=== PATIENT | male | born 1935 | race Caucasian/White ===

== ENCOUNTER 2017-04-14 06:49 | Day surgery (SDC) | payer MEDICARE, OTHER ==
[~2017-04-14 06:49] MED LIST: Lactated Ringers 1,000 ML IV SCH
[2017-04-14] MEDS ORDERED: fentaNYL 100 MCG/2 ML SDV ONE (09:01)
[2017-04-14] MEDS ORDERED: Propofol 200 MG/20 ML SDV ONE ×2 (09:02→09:22)
[2017-04-14 10:28] VITALS: BP 174/87
--- NOTE | 2017-04-14 11:52 | OR ---
DATE OF SURGERY: 04/14/2017 REFERRING PROVIDER: Olimpia Cleaning MD. PRE-OPERATIVE DIAGNOSES: History of colon polyps. Last colonoscopy was December 2011 and revealed one tubular adenoma. No known family history of colon cancer or colon polyps. POST-OPERATIVE DIAGNOSES: 1. Two small polyps, removed with cold forceps. a. A 4-mm polyp at 50 cm. b. A 2-mm polyp at 30 cm. 2. Some minimal left-sided diverticulosis. PROCEDURE: Colonoscopy with polypectomy x2 using cold forceps. SURGEON: Stiven Aguilar M.D. ANESTHESIA: Monitored anesthesia care. BOWEL PREP: Good. DESCRIPTION OF OPERATION: Matthew is a 81-year-old male. The patient was brought to the endoscopy suite after discussing risks and benefits of the procedure. Informed consent was obtained for conscious sedation and colonoscopy with or without biopsy and/or polypectomy. We also discussed possibility of missed lesions. Pre-procedure exam was unremarkable. IV, oxygen, and monitors were placed. The patient was placed in the left lateral decubitus position. Sedation was administered and a digital rectal exam was performed and was unremarkable. No palpable prostate nodules noted, nor any significant prostate enlargement. Colonoscope was passed into the rectum and slowly advanced all the way to the cecum. Cecum was viewed and photographed. The colonoscope was slowly withdrawn and the mucosa was closed observed in a direct circumferential manner. Ascending colon was unremarkable. Transverse colon was unremarkable. Descending colon did reveal a 4-mm polyp at 50 cm, removed with cold forceps. The sigmoid colon revealed 2-mm polyp at 30 cm removed with cold forceps. Retroflexion was performed. Rectal mucosa was unremarkable. Of note, the left colon did also reveal some minimal diverticulosis without any evidence of inflammation. Scope was removed. The patient tolerated the procedure well. The patient was monitored until that baseline status. Discharge instructions were reviewed and the patient was discharged in good condition. COMPLICATIONS: None. TOTAL TIME: 21 minute. ESTIMATED BLOOD LOSS: About 1 mL. RECOMMENDATIONS/FOLLOW-UP: We will await results of Path report to determine ideal followup interval. The patient can likely be done with screening colonoscopies given his age, depending on Path results, but not expecting any aggressive pathology of these 2 polyps. I will have the patient hold his aspirin for 3 days to limit any chance of bleeding. I would like to kindly thank Dr. Cleaning for this referral. DMB: 04/14/2017 09:57:18 MODL: 04/14/2017 11:33:21 /[id number]
== END 2017-04-14 10:57 | disposition home or self-care (01) ==
LOC: VM.SDS 06:49
PROVIDERS: ATTEND Family Medicine
DX: Z86.010 Personal history of colon polyps (principal); E11.9 Type 2 diabetes mellitus without complications
CPT/HCPCS: 00810; 45380; 82962; 88305; J2704; J3010; J7120

== ENCOUNTER 2021-04-06 08:39 | Emergency (ER) | payer MEDICARE, OTHER ==
[2021-04-06] MEDS ORDERED: Aspirin 81 MG Tab.Chew PO ONE (09:02)
--- NOTE | 2021-04-06 09:35 | EDM.PDOC ---
ED HPI GENERAL MEDICAL PROBLEM - General Stated Complaint: ER Time Seen by Provider: 04/06/21 08:40 Source of Information: Reports: Patient, RN History Limitations: Reports: No Limitations - History of Present Illness INITIAL COMMENTS - FREE TEXT/NARRATIVE: Pt. presents to ER with complaints of exertional chest pain and EKG changes with activity at cardiac rehab. Pt. has a history of severe CAD and angina. Pt. underwent a heart cath 03/02/2021 and has 70% stenosis left main, 90% mid and 100% distal LAD, 70% mid and 100% distal RCA, severe, severe proximal large D2 and 100% proximal OM 2. EF at that time was 40%. Pt. is not a candidate for stenting or operative management at [place] at this time. He is scheduled to be evaluated at [facility] in [place]. Pt. was participating in cardiac rehab today and experienced chest pain. Nursing noticed that the patient HR decreased to approx. 40. She states that he had some peaked t waves but there was no obvious ST abnormality. The pain resolved after stopping physical activity. He did not take any nitro. Pt. frequently has angina for which he takes SL nitro. Pt. was recently started on coreg and isosorbide. He is also on plavix, lipitor and lisinopril. He previously had been on amlodipine and metoprolol but this has been discontinued. On initial exam in ER, pt. reported that he was feeling much better, no experiencing any chest pain. Denies any jaw, arm, neck, or back pain. He denies any lightheadedness, palpitations, racing heart, diaphoresis at this time. Onset: Today Onset Date: 04/06/21 Location: Reports: Chest Quality: Reports: Ache, Dull - Related Data Allergies Allergy/AdvReac Type Severity Reaction Status Date / Time No Known Allergies Allergy Verified 04/14/17 07:44 Home Meds: Home Meds Ascorbate Calcium [Calcium Ascorbate] 500 mg PO DAILY 04/08/17 [History] Aspirin 325 mg PO DAILY 04/08/17 [History] Calcium Citrate/Vitamin D3 [Calcium Citrate + D] 1 tab PO BIDMEALS 04/08/17 [History] Celecoxib 200 mg PO DAILY 04/08/17 [History] Cholecalciferol (Vitamin D3) [Vitamin D3] 2,000 unit PO DAILY 04/08/17 [History] Cinnamon Bark [Cinnamon] 500 mg PO DAILY 04/08/17 [History] Flaxseed Oil [Flaxseed] 1,000 mg PO DAILY 04/08/17 [History] Garlic 1,000 mg PO DAILY 04/08/17 [History] Glucosamine/D3/Boswellia Leonarda [Glucosamine Daily Complex Tab] 1 each PO DAILY 04/08/17 [History] Metoprolol Tartrate [Lopressor] 50 mg PO BID 04/08/17 [History] Niacin 500 mg PO BEDTIME 04/08/17 [History] Nitroglycerin [Nitrostat] 0.4 mg SL Q5M PRN 04/08/17 [History] [place]-3/DHA/Epa/Fish Oil [[place]-3 Fish Oil 1,000 MG Sfgl] 1,000 mg PO BID 04/08/17 [History] Pravastatin Sodium [Pravastatin (Pravachol)] 40 mg PO DAILY 04/08/17 [History] Ubidecarenone [Co Q-10] 300 mg PO DAILY 04/08/17 [History] Vit A/C/E AC/Znox/Cupric Oxide [Eye Vitamin-Minerals Tablet] 1 each PO DAILY 04/08/17 [History] Yeast,Dried (S. Cerevisiae) [Weber's Yeast] 500 mg PO DAILY 04/08/17 [History] amLODIPine [Norvasc] 5 mg PO DAILY 04/08/17 [History] Past Medical History HEENT History: Reports: Cataract Other HEENT History: RETINAL FUNCTION STUDIES ABNORMAL Cardiovascular History: Reports: Angina, High Cholesterol, Hypertension Other Cardiovascular History: ABNORMAL EKG Gastrointestinal History: Reports: Colon Polyp Other Genitourinary History: PROTEINUREA Other Musculoskeletal History: RIGHT ELBOW PAIN. RIGHT KNEE PAIN. CONTRACTURE OF PALMAR FASCIA. UMBILICAL HERNIA Neurological History: Reports: Neuropathy, Diabetic Other Psychiatric History: OBESITY Endocrine/Metabolic History: Reports: Diabetes, Type II Other Dermatologic History: SKIN LESION FACE - Past Surgical History HEENT Surgical History: Reports: Cataract Surgery, Eye Surgery Other HEENT Surgeries/Procedures: STRABISMIS SURGERY RIGHT EYE GI Surgical History: Reports: Colonoscopy Other Male Surgeries/Procedures: HERNIA REPAIR ED ROS GENERAL - Review of Systems Review Of Systems: See Below Constitutional: Reports: No Symptoms HEENT: Reports: No Symptoms Respiratory: Reports: No Symptoms Cardiovascular: Reports: Chest Pain Endocrine: Reports: No Symptoms GI/Abdominal: Reports: No Symptoms : Reports: No Symptoms Musculoskeletal: Reports: No Symptoms Skin: Reports: No Symptoms Neurological: Reports: No Symptoms Psychiatric: Reports: No Symptoms Hematologic/Lymphatic: Reports: No Symptoms Immunologic: Reports: No Symptoms ED EXAM, GENERAL - Physical Exam Exam: See Below Exam Limited By: No Limitations General Appearance: Alert, WD/WN, No Apparent Distress Neck: Normal Inspection, Supple, Non-Tender, Full Range of Motion Respiratory/Chest: No Respiratory Distress, Lungs Clear, Normal Breath Sounds, No Accessory Muscle Use, Chest Non-Tender Cardiovascular: Regular Rate, Rhythm, No Murmur GI/Abdominal: Soft, Non-Tender, No Organomegaly, No Distention, No Mass (Male) Exam: Deferred Rectal (Males) Exam: Deferred Back Exam: Normal Inspection, Full Range of Motion Extremities: Normal Inspection, Normal Range of Motion, Non-Tender, No Pedal Edema, Normal Capillary Refill Neurological: Alert, Oriented, CN II-XII Intact, Normal Cognition, Normal Refl exes, No Motor/Sensory Deficits Psychiatric: Normal Affect, Normal Mood Skin Exam: Warm, Dry, Intact, Normal Color, No Rash #1 Interpretation Rhythm: NSR [place]: Normal P-Wave: Present QRS: Normal ST-T: Normal QT: Normal Course - Orders/Labs/Meds Labs: Laboratory Tests 04/06/21 04/06/21 04/06/21 Range/Units 08:55 08:55 08:55 WBC 6.7 (4.0-10.0) x10^3/uL RBC 4.58 (4.5-6.0) x10^6/uL Hgb 14.2 (14.0-18.0) g/dL Hct 41.6 (40.0-52.0) % MCV 90.8 (78.0-93.0) fL MCH 31.0 (26.0-32.0) pg MCHC 34.1 (32.0-36.0) g/dL RDW Coeff of Lina 13.0 (10.0-15.0) % Plt Count 136 (130-400) x10^3/uL Neut % (Auto) 64.4 (50.0-80.0) % Lymph % (Auto) 23.9 L (25.0-50.0) % Cat[place] % (Auto) 8.8 (2.0-11.0) % Eos % (Auto) 2.5 (0.0-4.0) % Baso % (Auto) 0.4 (0.2-1.2) % PT 11.5 (9.9-12.5) SEC INR 1.0 L (2.0-3.5) APTT 21.7 L (25.6-32.8) SEC Sodium (136-145) mmol/L Potassium (3.5-5.1) mmol/L Chloride (98-107) mmol/L Carbon Dioxide (21-32) mmol/L Anion Gap (5-15) mmol/L BUN (7-18) mg/dL Creatinine (0.70-1.30) mg/dL Est Cr Clr Drug Dosing Estimated GFR (MDRD) Glucose (70-99) mg/dL Calcium (8.5-10.1) mg/dL Corrected Calcium (8.5-10.1) mg/dL Total Bilirubin (0.2-1.0) mg/dL AST (15-37) U/L ALT (16-63) U/L Alkaline Phosphatase (46-116) U/L Troponin I High Sens (<=76) ng/L Total Protein (6.4-8.2) g/dL Albumin (3.4-5.0) g/dL Globulin Albumin/Globulin Ratio 04/06/ Range/Units 08:55 WBC (4.0-10.0) x10^3/uL RBC (4.5-6.0) x10^6/uL Hgb (14.0-18.0) g/dL Hct (40.0-52.0) % MCV (78.0-93.0) fL MCH (26.0-32.0) pg MCHC (32.0-36.0) g/dL RDW Coeff of Lina (10.0-15.0) % Plt Count (130-400) x10^3/uL Neut % (Auto) (50.0-80.0) % Lymph % (Auto) (25.0-50.0) % Catron % (Auto) (2.0-11.0) % Eos % (Auto) (0.0-4.0) % Baso % (Auto) (0.2-1.2) % PT (9.9-12.5) SEC INR (2.0-3.5) APTT (25.6-32.8) SEC Sodium 143 (136-145) mmol/L Potassium 4.2 (3.5-5.1) mmol/L Chloride 105 (98-107) mmol/L Carbon Dioxide 26 (21-32) mmol/L Anion Gap 16.2 H (5-15) mmol/L BUN 22 H (7-18) mg/dL Creatinine 1.3 (0.70-1.30) mg/dL Est Cr Clr Drug Dosing TNP Estimated GFR (MDRD) 53 Glucose 160 H (70-99) mg/dL Calcium 8.8 (8.5-10.1) mg/dL Corrected Calcium 9.2 (8.5-10.1) mg/dL Total Bilirubin 0.9 (0.2-1.0) mg/dL AST 15 (15-37) U/L ALT 17 (16-63) U/L Alkaline Phosphatase 52 (46-116) U/L Troponin I High Sens 68 (<=76) ng/L Total Protein 6.9 (6.4-8.2) g/dL Albumin 3.5 (3.4-5.0) g/dL Globulin 3.4 Albumin/Globulin Ratio 1.03 Meds: Medications Discontinued Medications Generic Name Dose Route Start Last Admin Trade Name Freq PRN Reason Stop Dose Admin Aspirin 324 mg 04/06/21 09:02 Aspirin 81 Mg Tab.Chew PO 04/06/21 09:03 ONETIME ONE Departure - Departure Time of Disposition: 10:09 Disposition: Home, Self-Care 01 Clinical Impression: CAD (coronary artery disease) - Discharge Information Instructions: Angina, [id number] Additional Instructions: Home to rest. Follow-up with your cardiology team, especially if you are having discomfort at rest. Continue with current medications. - Problem List Review Problem List Initiated/Reviewed/Updated: Yes - Assessment/Plan Plan: Advised patient that we should perform serial troponin testing, but he refuses, stating that he feels better and wishes to go home. He was advised to return to ER if he has recurrent discomfort, shortness of breath, lightheadedness, or palpitations.
[2021-04-06 09:40] LABS: ANION GAP 16.2 mmol/L (5-15); CHLORIDE,CL 105 mmol/L (98-107); SODIUM,NA 143 mmol/L (136-145)
== END 2021-04-06 10:10 | disposition home or self-care (01) ==
LOC: VM.ED 08:39
DX: I25.10 Atherosclerotic heart disease of native coronary artery without angina pectoris (principal); E78.00 Pure hypercholesterolemia, unspecified; I10 Essential (primary) hypertension; E11.40 Type 2 diabetes mellitus with diabetic neuropathy, unspecified; E66.9 Obesity, unspecified; Z79.82 Long term (current) use of aspirin; Z79.899 Other long term (current) drug therapy
CPT/HCPCS: 80053; 84484; 85025; 85610; 85730; 93005; 93010; 99284; 99285-25; A9270-GY

== ENCOUNTER 2021-04-13 08:21 | Emergency (ER) | payer MEDICARE, OTHER ==
--- NOTE | 2021-04-13 09:09 | EDM.PDOC ---
ED HPI GENERAL MEDICAL PROBLEM - General Chief Complaint: Cardiovascular Problem Stated Complaint: CHEST PAIN Time Seen by Provider: 04/13/21 08:25 Source of Information: Reports: Patient History Limitations: Reports: No Limitations - History of Present Illness INITIAL COMMENTS - FREE TEXT/NARRATIVE: Patient states last night about 230 started having some midsternal pain about a 3 out of 10 patient states is more of a pressure than pain with radiation to the left arm he states this is not his unusual type of chest pain he has it quite often takes nitro for it but states last night he had to take 3 nitros over. About 3 or 4 hours to get it to resolve. He states he also had some really bad indigestion from eating a hamburger steak and drinking a cold beer last night. He does have significant coronary artery disease and is currently waiting to be seen in [place] for a specialist to have a stenting procedure done that cannot be done at [place] with the pest control pilot. Duration: Hour(s): Location: Reports: Chest Quality: Reports: Pressure Severity: Mild Improves with: Reports: Medication Worsens with: Reports: None Associated Symptoms: Reports: No Other Symptoms, Chest Pain. Denies: Confusion, Cough, Diaphoresis, Fever/Chills, Headaches, Malaise, Nausea/Vomiting, Seizure, Shortness of Breath, Syncope, Weakness - Related Data Allergies Allergy/AdvReac Type Severity Reaction Status Date / Time No Known Allergies Allergy Verified 04/14/17 07:44 Home Meds: Home Meds Ascorbate Calcium [Calcium Ascorbate] 500 mg PO DAILY 04/08/17 [History] Aspirin 325 mg PO DAILY 04/08/17 [History] Calcium Citrate/Vitamin D3 [Calcium Citrate + D] 1 tab PO BIDMEALS 04/08/17 [History] Celecoxib 200 mg PO DAILY 04/08/17 [History] Cholecalciferol (Vitamin D3) [Vitamin D3] 2,000 unit PO DAILY 04/08/17 [History] Cinnamon Bark [Cinnamon] 500 mg PO DAILY 04/08/17 [History] Flaxseed Oil [Flaxseed] 1,000 mg PO DAILY 04/08/17 [History] Garlic 1,000 mg PO DAILY 04/08/17 [History] Glucosamine/D3/Boswellia Leonarda [Glucosamine Daily Complex Tab] 1 each PO DAILY 04/08/17 [History] Metoprolol Tartrate [Lopressor] 50 mg PO BID 04/08/17 [History] Niacin 500 mg PO BEDTIME 04/08/17 [History] Nitroglycerin [Nitrostat] 0.4 mg SL Q5M PRN 04/08/17 [History] [place]-3/DHA/Epa/Fish Oil [[place]-3 Fish Oil 1,000 MG Sfgl] 1,000 mg PO BID 04/08/17 [History] Pravastatin Sodium [Pravastatin (Pravachol)] 40 mg PO DAILY 04/08/17 [History] Ubidecarenone [Co Q-10] 300 mg PO DAILY 04/08/17 [History] Vit A/C/E AC/Znox/Cupric Oxide [Eye Vitamin-Minerals Tablet] 1 each PO DAILY 04/08/17 [History] Yeast,Dried (S. Cerevisiae) [Weber's Yeast] 500 mg PO DAILY 04/08/17 [History] amLODIPine [Norvasc] 5 mg PO DAILY 04/08/17 [History] Past Medical History HEENT History: Reports: Cataract Other HEENT History: RETINAL FUNCTION STUDIES ABNORMAL Cardiovascular History: Reports: Angina, High Cholesterol, Hypertension Other Cardiovascular History: ABNORMAL EKG Gastrointestinal History: Reports: Colon Polyp Other Genitourinary History: PROTEINUREA Other Musculoskeletal History: RIGHT ELBOW PAIN. RIGHT KNEE PAIN. CONTRACTURE OF PALMAR FASCIA. UMBILICAL HERNIA Neurological History: Reports: Neuropathy, Diabetic Other Psychiatric History: OBESITY Endocrine/Metabolic History: Reports: Diabetes, Type II Other Dermatologic History: SKIN LESION FACE - Past Surgical History HEENT Surgical History: Reports: Cataract Surgery, Eye Surgery Other HEENT Surgeries/Procedures: STRABISMIS SURGERY RIGHT EYE GI Surgical History: Reports: Colonoscopy Other Male Surgeries/Procedures: HERNIA REPAIR ED ROS GENERAL - Review of Systems Review Of Systems: See Below Constitutional: Reports: No Symptoms HEENT: Reports: No Symptoms Respiratory: Reports: No Symptoms Cardiovascular: Reports: Chest Pain, Other (Patient has not taken blood pressure medication yet this morning prior to arrival to the clinic in ER). Denies: Blood Pressure Problem, Claudication, Dyspnea on Exertion, Edema, Lightheadedness, Orthopnea, Palpitations, PND, Syncope Endocrine: Reports: No Symptoms GI/Abdominal: Reports: No Symptoms : Reports: No Symptoms Musculoskeletal: Reports: No Symptoms Skin: Reports: No Symptoms Neurological: Reports: No Symptoms Psychiatric: Reports: No Symptoms Hematologic/Lymphatic: Reports: No Symptoms Immunologic: Reports: No Symptoms ED EXAM, GENERAL - Physical Exam Exam: See Below Exam Limited By: No Limitations General Appearance: Alert, WD/WN, No Apparent Distress Eye Exam: Bilateral Eye: Normal Inspection, PERRL Ears: Normal External Exam Throat/Mouth: Normal Inspection, Normal Lips, Normal Teeth, Normal Gums, Normal Oropharynx, Normal Voice, No Airway Compromise Neck: Normal Inspection, Supple, Non-Tender, Full Range of Motion Respiratory/Chest: No Respiratory Distress, Lungs Clear, Normal Breath Sounds, No Accessory Muscle Use, Chest Non-Tender Cardiovascular: Normal Peripheral Pulses, Regular Rate, Rhythm, No Edema, No Gallop, No JVD, No Murmur, No Rub GI/Abdominal: Normal Bowel Sounds, Soft, Non-Tender, No Organomegaly, No Distention, No Abnormal Bruit, No Mass Back Exam: Normal Inspection, Full Range of Motion Extremities: Normal Inspection, Normal Range of Motion, Non-Tender, No Pedal Edema, Normal Capillary Refill Neurological: Alert, Oriented, CN II-XII Intact, Normal Cognition, Normal Gait, Normal Reflexes, No Motor/Sensory Deficits Psychiatric: Normal Affect, Normal Mood Skin Exam: Warm, Dry, Intact, Normal Color, No Rash #1 Interpretation EKG Date: 04/13/21 Time: 08:30 Rhythm: NSR [place]: Normal P-Wave: Present QRS: Normal ST-T: Normal QT: Normal Course - Vital Signs Text/Narrative:: cbc bmp trop cxr 1st trop 75 2nd 124 called [place] for transfer [address] Sheriff [phone] nothing that can be done As far as with pest control pilot there is no possibility of CABG per prior notes he is pending a consult with another pest control pilot in [place]. He recommends at this time either transferring the patient for inpatient treatment with heparin check serial troponins over the night or keeping the patient here and doing the same Spoke with the patient at this time he wishes to remain here for treatment called Dr. Scarlett Pelayo for admission 1145 we will start the patient on heparin drip at this time after recommendation by microeconomics professor Per DR pelayo transfer to [place] Spoke with Dr Huerta will accept pt 1200 - Orders/Labs/Meds Orders: Active Orders 24 hr Category Date Time Status Heart Healthy Diet [DIET] Diet 04/13/21 Lunch Ordered Labs: Laboratory Tests 04/13/21 04/13/21 04/13/21 Range/Units 08:38 08:38 08:38 WBC 7.3 (4.0-10.0) x10^3/uL RBC 4.84 (4.5-6.0) x10^6/uL Hgb 15.0 (14.0-18.0) g/dL Hct 44.3 (40.0-52.0) % MCV 91.5 (78.0-93.0) fL MCH 31.0 (26.0-32.0) pg MCHC 33.9 (32.0-36.0) g/dL RDW Coeff of Lina 13.6 (10.0-15.0) % Plt Count 140 (130-400) x10^3/uL Neut % (Auto) 64.3 (50.0-80.0) % Lymph % (Auto) 24.0 L (25.0-50.0) % [place] % (Auto) 8.7 (2.0-11.0) % Eos % (Auto) 2.7 (0.0-4.0) % Baso % (Auto) 0.3 (0.2-1.2) % PT 11.6 (9.9-12.5) SEC INR 1.0 L (2.0-3.5) APTT (25.6-32.8) SEC Sodium 141 (136-145) mmol/L Potassium 4.3 (3.5-5.1) mmol/L Chloride 105 (98-107) mmol/L Carbon Dioxide 27 (21-32) mmol/L Anion Gap 13.3 (5-15) mmol/L BUN 21 H (7-18) mg/dL Creatinine 1.4 H (0.70-1.30) mg/dL Est Cr Clr Drug Dosing TNP Estimated GFR (MDRD) 48 Glucose 146 H (70-99) mg/dL Calcium 9.3 (8.5-10.1) mg/dL Troponin I High Sens 75 (<=76) ng/L 04/13/21 04/13/21 Range/Units 08:38 10:35 WBC (4.0-10.0) x10^3/uL RBC (4.5-6.0) x10^6/uL Hgb (14.0-18.0) g/dL Hct (40.0-52.0) % MCV (78.0-93.0) fL MCH (26.0-32.0) pg MCHC (32.0-36.0) g/dL RDW Coeff of Lina (10.0-15.0) % Plt Count (130-400) x10^3/uL Neut % (Auto) (50.0-80.0) % Lymph % (Auto) (25.0-50.0) % [place] % (Auto) (2.0-11.0) % Eos % (Auto) (0.0-4.0) % Baso % (Auto) (0.2-1.2) % PT (9.9-12.5) SEC INR (2.0-3.5) APTT 22.5 L (25.6-32.8) SEC Sodium (136-145) mmol/L Potassium (3.5-5.1) mmol/L Chloride (98-107) mmol/L Carbon Dioxide (21-32) mmol/L Anion Gap (5-15) mmol/L BUN (7-18) mg/dL Creatinine (0.70-1.30) mg/dL Est Cr Clr Drug Dosing Estimated GFR (MDRD) Glucose (70-99) mg/dL Calcium (8.5-10.1) mg/dL Troponin I High Sens 124 H* (<=76) ng/L Departure - Departure Time of Disposition: 11:30 Disposition: DC/Tfer to Acute Hospital 02 Reason for Transfer *Q: Other (no indicated) Condition: Good Clinical Impression: NSTEMI (non-ST elevated myocardial infarction) Referrals: Olimpia Cleaning MD [Primary Care Provider] - Forms: ED Department Discharge, Interfacility Transfer EMTALA - Problem List & Annotations (1) NSTEMI (non-ST elevated myocardial infarction) SNOMED Code(s): 32063406 Code(s): I21.4 - NON-ST ELEVATION (NSTEMI) MYOCARDIAL INFARCTION Status: Acute Current Visit: Yes (2) CAD (coronary artery disease) SNOMED Code(s): 93436552 Code(s): I25.10 - ATHSCL HEART DISEASE OF [place] CORONARY ARTERY W/O ANG PCTRS Status: Acute Current Visit: No
[2021-04-13 09:29] LABS: CHLORIDE,CL 105 mmol/L (98-107); SODIUM,NA 141 mmol/L (136-145)
[2021-04-13 09:30] LABS: ANION GAP 13.3 mmol/L (5-15)
--- NOTE | 2021-04-13 09:54 | CR ---
[id number] RAD/RAD Chest PA or AP 1V EXAM: SINGLE VIEW CHEST. INDICATION: CHEST PAIN COMPARISON: CORRELATION IS MADE WITH OCTOBER 18, 2008 FINDINGS: There is mild to moderate edema The cardiac silhouette is enlarged The aorta is slightly tortuous IMPRESSION: MILD TO MODERATE CHF Sujit Saucedo MD 04/13/21 [id number] Thank you for allowing us to participate in the care of your patient.
[2021-04-13] MEDS ORDERED: Heparin Sodium 5,000 Units/ML Vial IV ONE (12:40)
[2021-04-13] MEDS ORDERED: Heparin Sodium/0.45% NaCl 25,000 UNITS/500 ML BAG IV SCH (12:45)
[2021-04-13] MEDS ORDERED: Heparin Sodium 5,000 Units/ML Vial IVPUSH ONE (12:46)
[2021-04-14 12:49] VITALS: BP 140/89; PULSE 75
== END 2021-04-13 15:14 | disposition short-term general hospital (02) ==
LOC: SUPCPDRO 08:21 → VM.ED 08:21
DX: I21.4 Non-ST elevation (NSTEMI) myocardial infarction (principal); E78.00 Pure hypercholesterolemia, unspecified; I10 Essential (primary) hypertension; E11.40 Type 2 diabetes mellitus with diabetic neuropathy, unspecified; E66.9 Obesity, unspecified; Z79.82 Long term (current) use of aspirin; Z79.899 Other long term (current) drug therapy; Z68.29 Body mass index [BMI] 29.0-29.9, adult
CPT/HCPCS: 36415; 71045; 80048; 84484; 85025; 85610; 85730; 96365; 96366; 99285; J1644; 93010; 99284

== ENCOUNTER 2021-04-26 05:46 | Observation (INO) | payer MEDICARE, OTHER ==
[2021-04-26] MEDS ORDERED: Nitroglycerin 2% Oint 1 GM UD Packet TOP ONE (06:03)
[2021-04-26] MEDS ORDERED: Furosemide 40 MG/4 ML VIAL IV ONE (06:11)
--- NOTE | 2021-04-26 06:23 | EDM.PDOC ---
ED HPI GENERAL MEDICAL PROBLEM - General Chief Complaint: Chest Pain Stated Complaint: Shortness of breath/chest pain Time Seen by Provider: 04/26/21 06:00 Source of Information: Reports: Patient, EMS, Old Records History Limitations: Reports: No Limitations - History of Present Illness INITIAL COMMENTS - FREE TEXT/NARRATIVE: Patient presents via ems for chest pain , shortness of breath. He has a long standing heart history to include a recent cath. 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 He states that he was started on a water pill in March but has not noted a difference in urination. He started to have increased shortness of breath and chest discomfort yesterday. Over the night he gave himself 3 separate doses of nitroglycerin with some relief of the left chest pressure that does intensify. This morning he awoke with significant shortness of breath. He was sweaty. EMS was called. SAts were 83% when they arrived. O2 was applied via NC and he improved to 98%. Duoneb was given as he was struggling to breathe, had retractions. 125 mg of solu medrol was given IVP for respiratory difficultly. He arrives with some chest discomfort, diaphoresis and shortness of breath. He states his weight is up about 2 pounds in the last week. lasix gave 40 mg lasix enroute. no results yet. Some diffuse ST elevations on their 12 lead. Onset Date: 04/25/21 Duration: Hour(s):, Heavy, Intermittent, Recurring Location: Reports: Chest Quality: Reports: Dull Severity: Moderate Improves with: Reports: None Worsens with: Reports: None Associated Symptoms: Reports: Shortness of Breath Treatments CAR INSPECTOR: Reports: Breathing Treatments, Other (see below) (lasix) Left chest Pain Score (Numeric/FACES): 5 - Related Data Allergies Allergy/AdvReac Type Severity Reaction Status Date / Time No Known Allergies Allergy Verified 04/26/21 08:09 Home Meds: Home Meds Ascorbate Calcium [Calcium Ascorbate] 500 mg PO DAILY 04/08/17 [History] Aspirin 325 mg PO DAILY 04/08/17 [History] Calcium Citrate/Vitamin D3 [Calcium Citrate + D] 1 tab PO BIDMEALS 04/08/17 [History] Celecoxib 200 mg PO DAILY 04/08/17 [History] Cholecalciferol (Vitamin D3) [Vitamin D3] 2,000 unit PO DAILY 04/08/17 [History] Cinnamon Bark [Cinnamon] 500 mg PO DAILY 04/08/17 [History] Flaxseed Oil [Flaxseed] 1,000 mg PO DAILY 04/08/17 [History] Garlic 1,000 mg PO DAILY 04/08/17 [History] Glucosamine/D3/Boswellia Leonarda [Glucosamine Daily Complex Tab] 1 each PO DAILY 04/08/17 [History] Metoprolol Tartrate [Lopressor] 50 mg PO BID 04/08/17 [History] Niacin 500 mg PO BEDTIME 04/08/17 [History] Nitroglycerin [Nitrostat] 0.4 mg SL Q5M PRN 04/08/17 [History] [place]-3/DHA/Epa/Fish Oil [[place]-3 Fish Oil 1,000 MG Sfgl] 1,000 mg PO DAILY 04/08/17 [History] Pravastatin Sodium [Pravastatin (Pravachol)] 40 mg PO DAILY 04/08/17 [History] Ubidecarenone [Co Q-10] 300 mg PO DAILY 04/08/17 [History] Vit A/C/E AC/Znox/Cupric Oxide [Eye Vitamin-Minerals Tablet] 1 each PO DAILY 04/08/17 [History] Yeast,Dried (S. Cerevisiae) [Weber's Yeast] 500 mg PO DAILY 04/08/17 [History] amLODIPine [Norvasc] 5 mg PO DAILY 04/08/17 [History] Aspirin 81 mg PO DAILY 04/26/21 [History] Clopidogrel Bisulfate [Plavix] 75 mg PO DAILY 04/26/21 [History] Furosemide [Lasix] 20 mg PO DAILY 04/26/21 [History] Isosorbide Mononitrate [Imdur] 90 mg PO WITHLUNCH 04/26/21 [History] atorvaSTATin Calcium [Lipitor] 40 mg PO BEDTIME 04/26/21 [History] carvediloL [Coreg] 12.5 mg PO BID 04/26/21 [History] lisinopriL [Lisinopril] 10 mg PO BEDTIME 04/26/21 [History] metFORMIN [Glucophage] 500 mg PO BIDMEALS 04/26/21 [History] Past Medical History HEENT History: Reports: Cataract Other HEENT History: RETINAL FUNCTION STUDIES ABNORMAL Cardiovascular History: Reports: Angina, High Cholesterol, Hypertension Other Cardiovascular History: ABNORMAL EKG Gastrointestinal History: Reports: Colon Polyp Other Genitourinary History: PROTEINUREA Other Musculoskeletal History: RIGHT ELBOW PAIN. RIGHT KNEE PAIN. CONTRACTURE OF PALMAR FASCIA. UMBILICAL HERNIA Neurological History: Reports: Neuropathy, Diabetic Other Psychiatric History: OBESITY Endocrine/Metabolic History: Reports: Diabetes, Type II Other Dermatologic History: SKIN LESION FACE - Past Surgical History HEENT Surgical History: Reports: Cataract Surgery, Eye Surgery Other HEENT Surgeries/Procedures: STRABISMIS SURGERY RIGHT EYE GI Surgical History: Reports: Colonoscopy Other Male Surgeries/Procedures: HERNIA REPAIR ED ROS GENERAL - Review of Systems Review Of Systems: See Below Constitutional: Reports: Fatigue, Diaphoresis HEENT: Reports: No Symptoms. Denies: Sinus Problem, Throat Swelling Respiratory: Reports: Shortness of Breath, Wheezing, Cough. Denies: Sputum, Hemoptysis Cardiovascular: Reports: Chest Pain, Dyspnea on Exertion Endocrine: Reports: Fatigue GI/Abdominal: Reports: No Symptoms. Denies: Abdominal Pain, Constipation, Diarrhea, Nausea, Vomiting : Reports: No Symptoms. Denies: Frequency, Urgency Musculoskeletal: Reports: No Symptoms. Denies: Leg Pain, Foot Pain, Muscle Stiffness Skin: Reports: No Symptoms Neurological: Reports: No Symptoms Psychiatric: Reports: No Symptoms ED EXAM, GENERAL - Physical Exam Exam: See Below Exam Limited By: No Limitations General Appearance: Alert, Moderate Distress Eye Exam: Bilateral Eye: EOMI, Normal Inspection, PERRL Ears: Normal External Exam Nose: Normal Inspection, Normal Mucosa Throat/Mouth: Normal Inspection, Normal Lips, Normal Teeth, Normal Oropharynx, Normal Voice Head: Atraumatic, Normocephalic Neck: Supple Respiratory/Chest: Respiratory Distress, Decreased Breath Sounds, Crackles, Wheezing, Accessory Muscle Use, Retractions, Prolonged Expiration Cardiovascular: Regular Rate, Rhythm, JVD, Tachycardia (100) GI/Abdominal: Normal Bowel Sounds, Soft, Non-Tender, No Abnormal Bruit, No Mass. No: Rigid, Rebound Extremities: Pedal Edema (1+ to mid larios bilaterally) Neurological: Alert, Oriented, CN II-XII Intact, Normal Cognition, Normal Gait Psychiatric: Normal Affect Skin Exam: Warm, Diaphoretic #1 Interpretation EKG Date: 04/26/21 Time: 05:56 Rhythm: NSR Rate (Beats/Min): 100 P-Wave: Present QRS: Normal ST-T: Elevated (unchanged from previous) QT: Normal Comparison: No Change Course - Vital Signs Last Recorded V/S: Last Vital Signs Temp 36.7 C 04/26/21 09:30 Pulse 87 04/26/21 09:30 Resp 20 04/26/21 09:30 BP 146/86 H 04/26/21 09:30 Pulse Ox 99 04/26/21 09:30 - Orders/Labs/Meds Orders: Active Orders 24 hr Category Date Time Status Cardiac Monitoring [RC] . DIRECTED Care 04/26/21 06:04 Active EKG 12 Lead [EKG Documentation Completion] [RC] STAT Care 04/26/21 05:50 Active Oxygen Therapy [RC] ASDIRECTED Care 04/26/21 06:08 Active Resuscitation Status Routine Resus Stat 04/26/21 06:01 Ordered Labs: Laboratory Tests 04/26/21 04/26/21 04/26/21 Range/Units 06:25 06:25 06:25 WBC 11.3 H (4.0-10.0) x10^3/uL RBC 4.85 (4.5-6.0) x10^6/uL Hgb 15.1 (14.0-18.0) g/dL Hct 44.5 (40.0-52.0) % MCV 91.8 (78.0-93.0) fL MCH 31.1 (26.0-32.0) pg MCHC 33.9 (32.0-36.0) g/dL RDW Coeff of Lina 13.9 (10.0-15.0) % Plt Count 145 (130-400) x10^3/uL Neut % (Auto) 65.7 (50.0-80.0) % Lymph % (Auto) 25.3 (25.0-50.0) % Island % (Auto) 6.9 (2.0-11.0) % Eos % (Auto) 1.7 (0.0-4.0) % Baso % (Auto) 0.4 (0.2-1.2) % D-Dimer, Quantitative 2.23 H (<=0.58) mg/LFEU Sodium 142 (136-145) mmol/L Potassium 4.0 (3.5-5.1) mmol/L Chloride 105 (98-107) mmol/L Carbon Dioxide 24 (21-32) mmol/L Anion Gap 17.0 H (5-15) mmol/L BUN 17 (7-18) mg/dL Creatinine 1.4 H (0.70-1.30) mg/dL Est Cr Clr Drug Dosing TNP Estimated GFR (MDRD) 48 Glucose 215 H (70-99) mg/dL Calcium 9.0 (8.5-10.1) mg/dL Corrected Calcium 9.5 (8.5-10.1) mg/dL Magnesium 1.9 (1.8-2.4) mg/dL Total Bilirubin 0.7 (0.2-1.0) mg/dL AST 19 (15-37) U/L ALT 19 (16-63) U/L Alkaline Phosphatase 60 (46-116) U/L Troponin I High Sens 80 H* (<=76) ng/L NT-Pro-B Natriuret Pep 1858 H (<=450) pg/mL Total Protein 7.3 (6.4-8.2) g/dL Albumin 3.4 (3.4-5.0) g/dL Globulin 3.9 Albumin/Globulin Ratio 0.87 Urine Color (YELLOW) Urine Appearance (CLEAR) Urine pH (5.0-8.0) Ur Specific [place] Urine Protein (NEGATIVE) mg/dL Urine Glucose (UA) (NEGATIVE) mg/dL Urine Ketones (NEGATIVE) mg/dL Urine Occult Blood (NEGATIVE) Urine Nitrite (NEGATIVE) Urine Bilirubin (NEGATIVE) Urine Urobilinogen (0.2) EU/dL Ur Leukocyte Esterase (NEGATIVE) U Hyaline Cast (Auto) Urine RBC (NOT SEEN) /HPF Urine WBC (NOT SEEN) /HPF Ur Squamous Epith Cells (NOT SEEN) /HPF Urine Bacteria (NOT SEEN) /HPF Urine Mucus (NOT SEEN) /LPF SARS CoV-2 RNA Rapid CHARLETTE (NEGATIVE) 04/26/21 04/26/21 04/26/21 Range/Units 06:38 06:40 08:25 WBC (4.0-10.0) x10^3/uL RBC (4.5-6.0) x10^6/uL Hgb (14.0-18.0) g/dL Hct (40.0-52.0) % MCV (78.0-93.0) fL MCH (26.0-32.0) pg MCHC (32.0-36.0) g/dL RDW Coeff of Lina (10.0-15.0) % Plt Count (130-400) x10^3/uL Neut % (Auto) (50.0-80.0) % Lymph % (Auto) (25.0-50.0) % Island % (Auto) (2.0-11.0) % Eos % (Auto) (0.0-4.0) % Baso % (Auto) (0.2-1.2) % D-Dimer, Quantitative (<=0.58) mg/LFEU Sodium (136-145) mmol/L Potassium (3.5-5.1) mmol/L Chloride (98-107) mmol/L Carbon Dioxide (21-32) mmol/L Anion Gap (5-15) mmol/L BUN (7-18) mg/dL Creatinine (0.70-1.30) mg/dL Est Cr Clr Drug Dosing Estimated GFR (MDRD) Glucose (70-99) mg/dL Calcium (8.5-10.1) mg/dL Corrected Calcium (8.5-10.1) mg/dL Magnesium (1.8-2.4) mg/dL Total Bilirubin (0.2-1.0) mg/dL AST (15-37) U/L ALT (16-63) U/L Alkaline Phosphatase (46-116) U/L Troponin I High Sens 2460 H* (<=76) ng/L NT-Pro-B Natriuret Pep (<=450) pg/mL Total Protein (6.4-8.2) g/dL Albumin (3.4-5.0) g/dL Globulin Albumin/Globulin Ratio Urine Color Yellow (YELLOW) Urine Appearance Clear (CLEAR) Urine pH 5.5 (5.0-8.0) Ur Specific [place] 1.015 Urine Protein 30 H (NEGATIVE) mg/dL Urine Glucose (UA) Negative (NEGATIVE) mg/dL Urine Ketones Negative (NEGATIVE) mg/dL Urine Occult Blood Negative (NEGATIVE) Urine Nitrite Negative (NEGATIVE) Urine Bilirubin Negative (NEGATIVE) Urine Urobilinogen 0.2 (0.2) EU/dL Ur Leukocyte Esterase Negative (NEGATIVE) U Hyaline Cast (Auto) Rare Urine RBC 0-5 (NOT SEEN) /HPF Urine WBC Not seen (NOT SEEN) /HPF Ur Squamous Epith Cells Not seen (NOT SEEN) /HPF Urine Bacteria Rare (NOT SEEN) /HPF Urine Mucus Rare H (NOT SEEN) /LPF SARS CoV-2 RNA Rapid CHARLETTE Negative (NEGATIVE) Meds: Medications Discontinued Medications Generic Name Dose Route Start Last Admin Trade Name Saba PRN Reason Stop Dose Admin Aspirin 324 mg 04/26/21 06:33 04/26/21 06:30 Aspirin 81 Mg Tab.Chew PO 04/26/21 06:34 324 mg ONETIME ONE Administration Furosemide 40 mg 04/26/21 06:11 04/26/21 06:20 Furosemide 40 Mg/4 Ml Vial IV 04/26/21 06:12 40 mg ONETIME ONE Administration Iopamidol 100 ml 04/26/21 08:53 04/26/21 08:56 Iopamidol 612 Mg/Ml 100 Ml Bottle IVPUSH 04/26/21 08:54 100 ml ONETIME ONE Administration Nitroglycerin 1 gm 04/26/21 06:03 04/26/21 06:14 Nitroglycerin 2% Oint 1 Gm Ud Packet TOP 04/26/21 06:04 1 gm ONETIME ONE Administration - Radiology Interpretation Free Text/Narrative:: Patient Name: TIM GARCIA Date of : 1935 Procedure: MRI CARDIAC WITH AND WITHOUT CONTRAST Date of Service: 04/15/2021 EXAM: MRI CARDIAC WITH AND WITHOUT CONTRAST INDICATION: Chest pain/anginal equiv, ECGs or troponins abnormal, Heart failure, systolic, further testing COMPARISON(S): Coronary angiography from 03/02/2021. Echocardiogram from 03/01/2021 TECHNIQUE: Standard cardiac MRI was performed with cardiac triggering with static and cine images in standard cardiac planes. Velocity flow mapping was performed. Images were postprocessed on a freestanding workstation. Gadolinium based intravenous contrast was administered without complication. FINDINGS: Left atrium and left ventricle: The left atrium and left ventricle are normal in size. There is severe thinning of the inferior and inferior lateral vang of the left ventricle from the base to the apex. There is severe hypokinesis in these regions and akinesis in the inferior wall at the base of the heart. There is transmural delayed myocardial enhancement throughout most of the inferior wall. Delayed enhancement in the inferolateral wall involves greater than 75% of the thickness of the myocardium. The septal and anterior vang of the heart as well as the anterolateral vang of the heart demonstrate no delayed enhancement but do have mild hypertrophy with wall thickness of the septum measuring 17 mm and at the free wall measuring 18 mm. There is mild hypokinesis of the vang of the heart outside of the areas of infarct. Right atrium and right ventricle: The right atrium and right ventricle appear normal in size. The right ventricular myocardium is normal in thickness. Right ventricular wall motion appears normal. No abnormal delayed myocardial enhancement is identified. Mitral valve: Unremarkable Tricuspid valve: Unremarkable Aortic valve: Unremarkable Pulmonic valve: Unremarkable Aorta and great vessels: The aorta demonstrates no aneurysm. The ascending aorta measures 3.7 cm. The descending aorta measures 2.8 cm. Branching of the aortic arch appears normal. Main pulmonary artery is unremarkable. Pericardium and surrounding structures: The pericardium is normal in thickness. No pericardial effusion identified. Surrounding structures are unremarkable. Below values were correlated with stroke volumes obtained via velocity flow mapping. Left ventricular values: EF: 34% EDV: 126 ml ESV: 83 ml SV: 43 ml Myocardial mass: 183 g EDV/BSA: 60 ml/m2 ESV/BSA: 40 ml/m2 SV/BSA: 20 ml/m2 Myocardial mass/BSA: 87 g/m2 Right ventricular values: EF: 65% EDV: 50 ml ESV: 70 ml SV: 32 ml EDV/BSA: 24 ml/m2 ESV/BSA: 8 ml/m2 SV/BSA: 16 ml/m2 IMPRESSION: 1. Severe wall thinning with transmural delayed myocardial enhancement involv ing the inferior wall of the left ventricle from the base to the apex. 75% thickness delayed myocardial enhancement seen in the thinned inferolateral wall. This is compatible with nonviable infarct involving the RCA territory and the inferior portion of the circumflex territory. There is associated severe hypokinesis/akinesis of these vang. 2. Remainder of the vang of the left ventricle appear hypertrophic and mildly hypokinetic but without delayed enhancement. Left ventricular ejection fraction of 34%. 3. Normal right ventricular morphology and function with an ejection fraction of 65%. Images reviewed in concert with Dr. Sheriff from cardiology .04/26/2020 chest x-ray with diffuse interstitial and airspace disease suspicious for edema. question small nodular density right upper lung. CT of chest with angio, no PE, ground glass appearance of CHF, see report interpreted by radiology - Re-Assessments/Exams Free Text/Narrative Re-Assessment/Exam: 04/26/21 06:35 Patient is speaking in 2-3 word sentences at arrival, does start to improve and is starting to diurese. 400 ml out. Speaks in 6 words sentences, continues to have labored breathing. sats were 88% at arrival. EMS did give 125 of solu medrol, 40 mg lasix iv and duoneb. EKG without new changes, increased work of breathing and diaphoresis. will work up for CHF. Conversation with the patient sound like cabg or PTCA are not indicated per cardiology. labs, chest x-ray, iv lasix 40 g for a total of 80 mg, one inch nitropaste to chest, aspirin 324 mg chewed. Will do a covid test, patient has already had his covid vaccines, but his chest x-ray has diffuse ground glass appearance which could look like covid versus chf. patient did arrive without mask in place, one placed at triage. 04/26/21 07:19 Patient continues to diurese, resting and napping, feeling better. Troponin is 80, during his admission 04/15 it janes from 75 to 139 on 04/15. BNp on the was 518 and has been as low as 400. today BNP 1858. D dimer is elevated, probably due to chf,however due to hypoxia and creatinine is fine today, will get CT angio to rule out PE as source. See cardiac MRI done recently for report of severe hypokinesis and thin walled, Last PTCA without ability to do any interventions 04/26/21 07:30 Discussed with patient. There are not any interventions for transfer. looking much better. Will get CT, admit for diuresis and trending of troponins. 04/26/21 09:56 call to cardiology at [place]. Discussed the case. not an operative candidate. elevation of trop likely due to CHF. offered addition of zaroxolyn for diuresis. will admit and monitor. Departure - Departure Time of Disposition: 09:57 (please use this document for admission H & P) Disposition: Refer to Observation Clinical Impression: CHF (congestive heart failure) Sepsis Event Note (ED) - Focused Exam Vital Signs: Vital Signs Temp Pulse Resp BP Pulse Ox Pulse Ox 04/26/21 09:30 36.7 C 87 20 146/86 H 99 04/26/21 06:42 27 H 182/101 H 96 04/26/21 06:30 28 H 176/102 H 98 04/26/21 06:10 29 H 175/103 H 98 04/26/21 05:46 36.3 C 107 H 30 H 190/111 H 86 L 97 - My Orders Last 24 Hours: My Active Orders 04/26/21 05:50 EKG 12 Lead [EKG Documentation Completion] [RC] STAT 04/26/21 06:01 Resuscitation Status Routine 04/26/21 06:04 Cardiac Monitoring [RC] . DIRECTED 04/26/21 06:08 Oxygen Therapy [RC] ASDIRECTED - Assessment/Plan Last 24 Hours: My Active Orders 04/26/21 05:50 EKG 12 Lead [EKG Documentation Completion] [RC] STAT 04/26/21 06:01 Resuscitation Status Routine 04/26/21 06:04 Cardiac Monitoring [RC] . DIRECTED 04/26/21 06:08 Oxygen Therapy [RC] ASDIRECTED
[2021-04-26] MEDS ORDERED: Aspirin 81 MG Tab.Chew PO ONE (06:33)
[2021-04-26 07:02] LABS: CHLORIDE,CL 105 mmol/L (98-107); SODIUM,NA 142 mmol/L (136-145)
--- NOTE | 2021-04-26 08:29 | CR ---
[id number] RAD/RAD Chest Portable EXAM: PORTABLE CHEST RADIOGRAPH. INDICATION: CHEST PAIN COMPARISON: CORRELATION IS MADE WITH APRIL 13, 2021 FINDINGS: Bilateral interstitial infiltrates are seen The cardiac silhouette is stable IMPRESSION: EXTENSIVE BILATERAL INFILTRATES THIS LIKELY REPRESENTS PULMONARY EDEMA Sujit Saucedo MD 04/26/21 [id number] Thank you for allowing us to participate in the care of your patient.
[2021-04-26] MEDS ORDERED: Iopamidol 612 MG/ML 100 ML Bottle IVPUSH ONE (08:53)
--- NOTE | 2021-04-26 09:26 | CT ---
[id number] CT/CTA Chest Exam: CTA Chest Clinical Data: HYPOXIA ELEVATED D-DIMER COMPARISON: NO PREVIOUS SIMILAR EXAM IS AVAILABLE FINDINGS: Small to moderate bilateral effusions are seen with a groundglass pulmonary parenchymal pattern bilaterally There are no pulmonary emboli There is no mediastinal mass or adenopathy IMPRESSION: PROBABLE PULMONARY EDEMA NO PULMONARY EMBOLI Sujit Saucedo MD 04/26/21 [id number] Thank you for allowing us to participate in the care of your patient.
[2021-04-26] MEDS ORDERED: Docusate Sodium 100 MG Cap PO PRN (10:12)
[2021-04-26] MEDS ORDERED: Acetaminophen 325 MG Tab PO PRN (10:12)
[2021-04-26] MEDS ORDERED: Ondansetron 4 MG Tab.DIS PO PRN (10:12)
[2021-04-26] MEDS: Isosorbide Mononitrate 30 MG Tab.ER PO SCH (11:46)
[2021-04-26] MEDS: Metolazone 2.5 MG Tab PO SCH (11:46)
[2021-04-26] MEDS: Clopidogrel 75 MG Tab PO SCH (11:46)
[2021-04-26] MEDS: metFORMIN 500 MG Tab PO SCH ×2 (13:25→17:54)
[2021-04-26] MEDS: Carvedilol 12.5 MG Tab PO SCH ×2 (13:26→17:54)
[2021-04-26] MEDS ORDERED: Carvedilol 12.5 MG Tab PO SCH (18:00)
[2021-04-26] MEDS ORDERED: metFORMIN 500 MG Tab PO SCH (18:00)
[2021-04-26] MEDS ORDERED: atorvaSTATin 40 MG Tab PO SCH (20:00)
[2021-04-26] MEDS ORDERED: Lisinopril 10 MG Tab PO SCH (20:00)
[2021-04-27 06:24] VITALS: PULSE 86
--- NOTE | 2021-04-27 07:04 | PCM.DCSUM1 ---
Discharge Summary - Hospital Course HPI Initial Comments: Patient came in with respiratory distress, hypoxia and fluid overload. He was successfuly diuresed. Came off oxygen and is doing well. Discussed his heart failure and his difficult heart situation. He understands there are limited interventions for him. will have to watch his sodium. take lasix daily and watch daily weights Diagnosis: Stroke: No Modified Sloane Scale: No Symptoms at All Modified Kendall Scale Score: 0 - Discharge Data Discharge Date: 04/27/21 Discharge Disposition: Home, Self-Care 01 Condition: Good - Referral to Home Health Primary Care Physician: lOimpia Cleaning MD - Patient Summary/Data Recommended Follow-up Testing/Procedures: PCP in the a few days to recheck elecrolytes and renal function Hospital Course: Respiratory failiure, CHF, was diuresed, did well, came off oxygen. troponin continued to climb, discussed with cardiology at [place], feels it is due to CHF, No need for transfer. No interventions to offer. No chest pain. ambulatory, - Patient Instructions Diet: Heart Healthy Diet Other/Special Instructions: you need to take 40 mg of lasix ( furosemide ) a day. If you gain two pounds you should take an extra dose. Make an appointment for close follow up with your physician in a few days. - Discharge Plan *PRESCRIPTION DRUG MONITORING PROGRAM REVIEWED*: Not Applicable *COPY OF PRESCRIPTION DRUG MONITORING REPORT IN PATIENT LEIGH ANN: Not Applicable Home Medications: Home Meds Ascorbate Calcium [Calcium Ascorbate] 500 mg PO DAILY 04/08/17 [History] Calcium Citrate/Vitamin D3 [Calcium Citrate + D] 1 tab PO BIDMEALS 04/08/17 [History] Cholecalciferol (Vitamin D3) [Vitamin D3] 2,000 unit PO DAILY 04/08/17 [History] Cinnamon Bark [Cinnamon] 500 mg PO DAILY 04/08/17 [History] Flaxseed Oil [Flaxseed] 1,000 mg PO DAILY 04/08/17 [History] Garlic 1,000 mg PO DAILY 04/08/17 [History] Glucosamine/D3/Boswellia Leonarda [Glucosamine Daily Complex Tab] 1 each PO DAILY 04/08/17 [History] Niacin 500 mg PO BEDTIME 04/08/17 [History] Nitroglycerin [Nitrostat] 0.4 mg SL Q5M PRN 04/08/17 [History] [place]-3/DHA/Epa/Fish Oil [[place]-3 Fish Oil 1,000 MG Sfgl] 1,000 mg PO DAILY 04/08/17 [History] Ubidecarenone [Co Q-10] 300 mg PO DAILY 04/08/17 [History] Vit A/C/E AC/Znox/Cupric Oxide [Eye Vitamin-Minerals Tablet] 1 each PO DAILY 04/08/17 [History] Yeast,Dried (S. Cerevisiae) [Weber's Yeast] 500 mg PO DAILY 04/08/17 [History] Acetaminophen [Tylenol] 650 mg PO Q4H PRN tablet 04/27/21 [Rx] Aspirin 81 mg PO DAILY tab.chew 04/27/21 [Rx] Clopidogrel [Plavix] 75 mg PO DAILY tablet 04/27/21 [Rx] Docusate Sodium [Colace] 100 mg PO BID PRN cap 04/27/21 [Rx] Furosemide [Lasix] 40 mg PO DAILY tablet 04/27/21 [Rx] Isosorbide Mononitrate [Imdur] 90 mg PO WITHLUNCH tab.er 04/27/21 [Rx] Ondansetron [Zofran ODT] 4 mg PO Q4H PRN tab.dis 04/27/21 [Rx] atorvaSTATin [Lipitor] 40 mg PO BEDTIME tablet 04/27/21 [Rx] carvediloL [Coreg] 12.5 mg PO BIDMEALS tablet 04/27/21 [Rx] lisinopriL [Prinivil] 10 mg PO BEDTIME tablet 04/27/21 [Rx] metFORMIN [Glucophage] 500 mg PO BIDMEALS tablet 04/27/21 [Rx] Oxygen Therapy Mode: Room Air Patient Handouts: Coronary Microvascular Disease, Heart Failure, Self Care, [id number], Heart Failure Action Plan, Living With Heart Failure, Heart Failure Exacerbation, Heart Failure Eating Plan Forms: ED Department Discharge Referrals: Olimpia Cleaning MD [Primary Care Provider] - - Discharge Summary/Plan Comment DC Time >30 min.: No - Patient Data Vitals - Most Recent: Last Vital Signs Temp 36.8 C 04/27/21 06:00 Pulse 86 04/27/21 06:00 Resp 16 04/27/21 06:00 BP 107/42 L 04/27/21 06:00 Pulse Ox 94 L 04/27/21 06:00 Weight - Most Recent: 89.811 kg I&O - Last 24 hours: Intake & Output 04/26/21 04/26/21 04/27/21 14:59 22:59 06:59 Intake Total 240 240 300 Output Total 682 573 4512 Balance -410 360 1000 Lab Results - Last 24 hrs: Laboratory Results - last 24 hr 04/26/21 04/26/21 04/26/21 Range/Units 06:25 06:25 06:38 D-Dimer, Quantitative 2.23 H (<=0.58) mg/LFEU Sodium 142 (136-145) mmol/L Potassium 4.0 (3.5-5.1) mmol/L Chloride 105 (98-107) mmol/L Carbon Dioxide 24 (21-32) mmol/L Anion Gap 17.0 H (5-15) mmol/L BUN 17 (7-18) mg/dL Creatinine 1.4 H (0.70-1.30) mg/dL Est Cr Clr Drug Dosing TNP Estimated GFR (MDRD) 48 Glucose 215 H (70-99) mg/dL POC Glucose (70-99) mg/dL Calcium 9.0 (8.5-10.1) mg/dL Corrected Calcium 9.5 (8.5-10.1) mg/dL Magnesium 1.9 (1.8-2.4) mg/dL Total Bilirubin 0.7 (0.2-1.0) mg/dL AST 19 (15-37) U/L ALT 19 (16-63) U/L Alkaline Phosphatase 60 (46-116) U/L Troponin I High Sens 80 H* (<=76) ng/L NT-Pro-B Natriuret Pep 1858 H (<=450) pg/mL Total Protein 7.3 (6.4-8.2) g/dL Albumin 3.4 (3.4-5.0) g/dL Globulin 3.9 Albumin/Globulin Ratio 0.87 Urine Color (YELLOW) Urine Appearance (CLEAR) Urine pH (5.0-8.0) Ur Specific [place] Urine Protein (NEGATIVE) mg/dL Urine Glucose (UA) (NEGATIVE) mg/dL Urine Ketones (NEGATIVE) mg/dL Urine Occult Blood (NEGATIVE) Urine Nitrite (NEGATIVE) Urine Bilirubin (NEGATIVE) Urine Urobilinogen (0.2) EU/dL Ur Leukocyte Esterase (NEGATIVE) U Hyaline Cast (Auto) Urine RBC (NOT SEEN) /HPF Urine WBC (NOT SEEN) /HPF Ur Squamous Epith Cells (NOT SEEN) /HPF Urine Bacteria (NOT SEEN) /HPF Urine Mucus (NOT SEEN) /LPF SARS CoV-2 RNA Rapid CHARLETTE Negative (NEGATIVE) 04/26/21 04/26/21 04/26/21 Range/Units 06:40 08:25 16:12 D-Dimer, Quantitative (<=0.58) mg/LFEU Sodium (136-145) mmol/L Potassium (3.5-5.1) mmol/L Chloride (98-107) mmol/L Carbon Dioxide (21-32) mmol/L Anion Gap (5-15) mmol/L BUN (7-18) mg/dL Creatinine (0.70-1.30) mg/dL Est Cr Clr Drug Dosing Estimated GFR (MDRD) Glucose (70-99) mg/dL POC Glucose (70-99) mg/dL Calcium (8.5-10.1) mg/dL Corrected Calcium (8.5-10.1) mg/dL Magnesium (1.8-2.4) mg/dL Total Bilirubin (0.2-1.0) mg/dL AST (15-37) U/L ALT (16-63) U/L Alkaline Phosphatase (46-116) U/L Troponin I High Sens 2460 H* 96584 H* (<=76) ng/L NT-Pro-B Natriuret Pep (<=450) pg/mL Total Protein (6.4-8.2) g/dL Albumin (3.4-5.0) g/dL Globulin Albumin/Globulin Ratio Urine Color Yellow (YELLOW) Urine Appearance Clear (CLEAR) Urine pH 5.5 (5.0-8.0) Ur Specific [place] 1.015 Urine Protein 30 H (NEGATIVE) mg/dL Urine Glucose (UA) Negative (NEGATIVE) mg/dL Urine Ketones Negative (NEGATIVE) mg/dL Urine Occult Blood Negative (NEGATIVE) Urine Nitrite Negative (NEGATIVE) Urine Bilirubin Negative (NEGATIVE) Urine Urobilinogen 0.2 (0.2) EU/dL Ur Leukocyte Esterase Negative (NEGATIVE) U Hyaline Cast (Auto) Rare Urine RBC 0-5 (NOT SEEN) /HPF Urine WBC Not seen (NOT SEEN) /HPF Ur Squamous Epith Cells Not seen (NOT SEEN) /HPF Urine Bacteria Rare (NOT SEEN) /HPF Urine Mucus Rare H (NOT SEEN) /LPF SARS CoV-2 RNA Rapid CHARLETTE (NEGATIVE) 04/26/21 Range/Units 17:01 D-Dimer, Quantitative (<=0.58) mg/LFEU Sodium (136-145) mmol/L Potassium (3.5-5.1) mmol/L Chloride (98-107) mmol/L Carbon Dioxide (21-32) mmol/L Anion Gap (5-15) mmol/L BUN (7-18) mg/dL Creatinine (0.70-1.30) mg/dL Est Cr Clr Drug Dosing Estimated GFR (MDRD) Glucose (70-99) mg/dL POC Glucose 243 H (70-99) mg/dL Calcium (8.5-10.1) mg/dL Corrected Calcium (8.5-10.1) mg/dL Magnesium (1.8-2.4) mg/dL Total Bilirubin (0.2-1.0) mg/dL AST (15-37) U/L ALT (16-63) U/L Alkaline Phosphatase (46-116) U/L Troponin I High Sens (<=76) ng/L NT-Pro-B Natriuret Pep (<=450) pg/mL Total Protein (6.4-8.2) g/dL Albumin (3.4-5.0) g/dL Globulin Albumin/Globulin Ratio Urine Color (YELLOW) Urine Appearance (CLEAR) Urine pH (5.0-8.0) Ur Specific [place] Urine Protein (NEGATIVE) mg/dL Urine Glucose (UA) (NEGATIVE) mg/dL Urine Ketones (NEGATIVE) mg/dL Urine Occult Blood (NEGATIVE) Urine Nitrite (NEGATIVE) Urine Bilirubin (NEGATIVE) Urine Urobilinogen (0.2) EU/dL Ur Leukocyte Esterase (NEGATIVE) U Hyaline Cast (Auto) Urine RBC (NOT SEEN) /HPF Urine WBC (NOT SEEN) /HPF Ur Squamous Epith Cells (NOT SEEN) /HPF Urine Bacteria (NOT SEEN) /HPF Urine Mucus (NOT SEEN) /LPF SARS CoV-2 RNA Rapid CHARLETTE (NEGATIVE) Med Orders - Current: Current Medications Acetaminophen (Acetaminophen 325 Mg Tab) 650 mg PO Q4H PRN PRN Reason: Pain (Mild 1-3)/fever Aspirin (Aspirin 81 Mg Tab.Chew) 81 mg PO DAILY [facility] Atorvastatin Calcium (Atorvastatin 40 Mg Tab) 40 mg PO BEDTIME [facility] Last Admin: 04/26/21 20:29 Dose: 40 mg Documented by: Carvedilol (Carvedilol 12.5 Mg Tab) 12.5 mg PO BIDMEALS [facility] Last Admin: 04/26/21 17:54 Dose: 12.5 mg Documented by: Clopidogrel Bisulfate (Clopidogrel 75 Mg Tab) 75 mg PO DAILY [facility] Last Admin: 04/26/21 11:46 Dose: 75 mg Documented by: Docusate Sodium (Docusate Sodium 100 Mg Cap) 100 mg PO BID PRN PRN Reason: Constipation Furosemide (Furosemide 40 Mg Tab) 40 mg PO DAILY [facility] Isosorbide Mononitrate (Isosorbide Mononitrate 30 Mg Tab.Er) 90 mg PO WITHLUNCH [facility] Last Admin: 04/26/21 11:46 Dose: 90 mg Documented by: Lisinopril (Lisinopril 10 Mg Tab) 10 mg PO BEDTIME [facility] Last Admin: 04/26/21 20:30 Dose: 10 mg Documented by: Metformin HCl (Metformin 500 Mg Tab) 500 mg PO BIDMEALS [facility] Last Admin: 04/26/21 17:54 Dose: 500 mg Documented by: Metolazone (Metolazone 2.5 Mg Tab) 2.5 mg PO DAILY [facility] Last Admin: 04/26/21 11:46 Dose: 2.5 mg Documented by: Non-Formulary Medication (Niacin [Niacin]) 500 mg PO BEDTIME [facility] Ondansetron HCl (Ondansetron 4 Mg Tab.Dis) 4 mg PO Q4H PRN PRN Reason: nausea, able to take PO Discontinued Medications Aspirin (Aspirin 81 Mg Tab.Chew) 324 mg PO ONETIME ONE Stop: 04/26/21 06:34 Last Admin: 04/26/21 06:30 Dose: 324 mg Documented by: Carvedilol (Carvedilol 12.5 Mg Tab) 12.5 mg PO BIDMEALS [facility] Furosemide (Furosemide 40 Mg/4 Ml Vial) 40 mg IV ONETIME ONE Stop: 04/26/21 06:12 Last Admin: 04/26/21 06:20 Dose: 40 mg Documented by: Iopamidol (Iopamidol 612 Mg/Ml 100 Ml Bottle) 100 ml IVPUSH ONETIME ONE Stop: 04/26/21 08:54 Last Admin: 04/26/21 08:56 Dose: 100 ml Documented by: Metformin HCl (Metformin 500 Mg Tab) 500 mg PO BIDMEALS [facility] Nitroglycerin (Nitroglycerin 2% Oint 1 Gm Ud Packet) 1 gm TOP ONETIME ONE Stop: 04/26/21 06:04 Last Admin: 04/26/21 06:14 Dose: 1 gm Documented by: *Q Meaningful Use (DIS) - VTE *Q VTE Anticoagulation Contraindications: Alternative [place] Request PT
[2021-04-27] MEDS ORDERED: Aspirin 81 MG Tab.Chew PO SCH (08:00)
[2021-04-27] MEDS ORDERED: Furosemide 40 MG Tab PO SCH (08:00)
[2021-04-27] MEDS: metFORMIN 500 MG Tab PO SCH (08:35)
[2021-04-27] MEDS: Metolazone 2.5 MG Tab PO SCH (08:36)
[2021-04-27] MEDS: Carvedilol 12.5 MG Tab PO SCH (08:36)
[2021-04-27] MEDS: Clopidogrel 75 MG Tab PO SCH (08:37)
[2021-04-27] MEDS: Isosorbide Mononitrate 30 MG Tab.ER PO SCH (11:54)
[2021-04-27 11:58] VITALS: BP 137/62
[2021-04-27] MEDS ORDERED: Niacin 500 MG Tab.ER PO SCH (20:00)
== END 2021-04-27 12:20 | disposition home or self-care (01) ==
LOC: VM.ED 05:46 → UNDOADMOB 09:31 → VM.MS 09:31
PROVIDERS: ADMIT Physician Assistant; ATTEND Physician Assistant
DX: I11.0 Hypertensive heart disease with heart failure (principal); I50.20 Unspecified systolic (congestive) heart failure; J96.01 Acute respiratory failure with hypoxia; E11.9 Type 2 diabetes mellitus without complications; E66.9 Obesity, unspecified; E78.00 Pure hypercholesterolemia, unspecified; E87.70 Fluid overload, unspecified; Z86.010 Personal history of colon polyps; Z20.822 Contact with and (suspected) exposure to COVID-19; R77.8 Other specified abnormalities of plasma proteins; Z79.899 Other long term (current) drug therapy; Z79.82 Long term (current) use of aspirin; Z79.84 Long term (current) use of oral hypoglycemic drugs; Z68.29 Body mass index [BMI] 29.0-29.9, adult
CPT/HCPCS: 36415; 71045; 71275; 80048; 80053; 81001; 82947; 83735; 83880; 84484; 85025; 85379; 93005; 93010; 94760; 96374; 99217; 99220; 99285-25; A9270-GY; G0378; J1940; Q9967; U0002

== ENCOUNTER 2022-12-17 06:54 | Day surgery (SDC) | payer MEDICARE, OTHER ==
[2022-12-17] MEDS ORDERED: Sodium Chloride 0.9% 10 ML Syringe FLUSH PRN (07:00)
[2022-12-17] MEDS: Lactated Ringers 1,000 ML IV SCH (07:24)
[2022-12-17] MEDS ORDERED: Propofol 200 MG/20 ML SDV ONE ×2 (08:11→09:28)
[2022-12-17] MEDS ORDERED: fentaNYL 100 MCG/2 ML SDV ONE (08:11)
[2022-12-17 10:20] VITALS: BP 165/73; PULSE 58
== END 2022-12-17 11:07 | disposition home or self-care (01) ==
LOC: VM.SDS 06:54
PROVIDERS: ATTEND Student in an Organized Health Care Education/Training Program
DX: Z12.11 Encounter for screening for malignant neoplasm of colon (principal); D12.2 Benign neoplasm of ascending colon; D12.0 Benign neoplasm of cecum; D12.3 Benign neoplasm of transverse colon; E78.00 Pure hypercholesterolemia, unspecified; I11.0 Hypertensive heart disease with heart failure; I50.22 Chronic systolic (congestive) heart failure; I25.10 Atherosclerotic heart disease of native coronary artery without angina pectoris; I21.4 Non-ST elevation (NSTEMI) myocardial infarction; E66.9 Obesity, unspecified; E11.40 Type 2 diabetes mellitus with diabetic neuropathy, unspecified; G47.33 Obstructive sleep apnea (adult) (pediatric); G31.84 Mild cognitive impairment of uncertain or unknown etiology; D50.0 Iron deficiency anemia secondary to blood loss (chronic); Z98.890 Other specified postprocedural states; Z86.010 Personal history of colon polyps; Z79.899 Other long term (current) drug therapy; Z87.891 Personal history of nicotine dependence; Z68.28 Body mass index [BMI] 28.0-28.9, adult
CPT/HCPCS: 00811; 82947; 88305; J2704; J3010; J7120

== ENCOUNTER 2023-01-16 13:30 | Inpatient (IN) | payer MEDICARE ==
[2023-01-16 14:26] LABS: CHLORIDE,CL 99 mmol/L (98-107); SODIUM,NA 137 mmol/L (136-145)
[2023-01-16 14:27] LABS: ESTIMATED GFR 39 mL/min (>=60)
[2023-01-16] MEDS ORDERED: Iopamidol 755 Mg/ML 100 ML Bottle IVPUSH ONE (14:27)
[2023-01-16] MEDS ORDERED: Sodium Chloride 0.9% 1,000 ML IV SCH (14:45)
[2023-01-16] MEDS ORDERED: Clopidogrel 75 MG Tab PO ONE (17:45)
[2023-01-16] MEDS ORDERED: Acetaminophen 500 MG Tab PO PRN (18:53)
[2023-01-16] MEDS ORDERED: Nitroglycerin 0.4 MG Tab.SL SL PRN (18:53)
[2023-01-16] MEDS ORDERED: 50% Dextrose in Water 50 ML Syringe IVPUSH PRN (19:32)
[2023-01-16] MEDS ORDERED: Glucagon,Human Recombinant 1 MG Vial IM PRN (19:32)
[2023-01-16] MEDS: atorvaSTATin 40 MG Tab PO SCH (20:04)
[2023-01-16] MEDS: Insulin Glarg,Human.Rec.Analog 100 Unit/ML SUBCUT SCH (20:06)
[2023-01-16] MEDS ORDERED: atorvaSTATin 40 MG Tab PO SCH (21:00)
[2023-01-16] MEDS: Magnesium Oxide 400 MG Tab PO SCH (22:41)
[2023-01-16] MEDS: Enoxaparin 40 MG/0.4 ML Syringe SUBCUT SCH (22:42)
[2023-01-17 07:06] LABS: ANION GAP 13.9 mmol/L (5-15)
[2023-01-17] MEDS: Cholecalciferol (Vitamin D3) 25 MCG Tab PO SCH (09:16)
[2023-01-17] MEDS: Magnesium Oxide 400 MG Tab PO SCH ×4 (09:17→20:08)
[2023-01-17] MEDS: Aspirin 81 MG Tab.Chew PO SCH (09:17)
[2023-01-17] MEDS: Beta-Carotene (Vitamin A) w/Vitamin C & E plus Minerals Tab PO SCH (09:17)
[2023-01-17] MEDS: Calcium Citrate/Vitamin D3 315 MG-250 Unit Tab PO SCH ×2 (09:17→18:28)
[2023-01-17] MEDS: Metoprolol Succinate 50 MG Tab.ER PO SCH (09:19)
[2023-01-17] MEDS: Isosorbide Mononitrate 30 MG Tab.ER PO SCH (09:21)
[2023-01-17] MEDS: Lisinopril 5 MG Tab PO SCH (09:21)
[2023-01-17] MEDS: Empagliflozin 25 MG Tab PO SCH (09:21)
[2023-01-17] MEDS: Clopidogrel 75 MG Tab PO SCH (13:58)
[2023-01-17] MEDS: Insulin Glarg,Human.Rec.Analog 100 Unit/ML SUBCUT SCH (20:04)
[2023-01-17] MEDS: Enoxaparin 40 MG/0.4 ML Syringe SUBCUT SCH (20:08)
[2023-01-17] MEDS: atorvaSTATin 40 MG Tab PO SCH (20:08)
[2023-01-18 07:21] LABS: ANION GAP 14.1 mmol/L (5-15)
[2023-01-18] MEDS: Aspirin 81 MG Tab.Chew PO SCH (08:29)
[2023-01-18] MEDS: Calcium Citrate/Vitamin D3 315 MG-250 Unit Tab PO SCH ×2 (08:29→17:18)
[2023-01-18] MEDS: Cholecalciferol (Vitamin D3) 25 MCG Tab PO SCH (08:30)
[2023-01-18] MEDS: Empagliflozin 25 MG Tab PO SCH (08:30)
[2023-01-18] MEDS: Clopidogrel 75 MG Tab PO SCH (08:30)
[2023-01-18] MEDS: Magnesium Oxide 400 MG Tab PO SCH ×4 (08:30→20:21)
[2023-01-18] MEDS: Lisinopril 5 MG Tab PO SCH (08:31)
[2023-01-18] MEDS: Isosorbide Mononitrate 30 MG Tab.ER PO SCH (08:31)
[2023-01-18] MEDS: Beta-Carotene (Vitamin A) w/Vitamin C & E plus Minerals Tab PO SCH (08:32)
[2023-01-18] MEDS: Metoprolol Succinate 50 MG Tab.ER PO SCH (08:32)
[2023-01-18] MEDS: atorvaSTATin 40 MG Tab PO SCH (20:21)
[2023-01-18] MEDS: Enoxaparin 40 MG/0.4 ML Syringe SUBCUT SCH (20:22)
[2023-01-19 06:57] VITALS: BP 151/76; PULSE 66
[2023-01-19] MEDS: Lisinopril 5 MG Tab PO SCH (08:10)
[2023-01-19] MEDS: Aspirin 81 MG Tab.Chew PO SCH (08:10)
[2023-01-19] MEDS: Magnesium Oxide 400 MG Tab PO SCH (08:10)
[2023-01-19] MEDS: Isosorbide Mononitrate 30 MG Tab.ER PO SCH (08:10)
[2023-01-19] MEDS: Cholecalciferol (Vitamin D3) 25 MCG Tab PO SCH (08:10)
[2023-01-19] MEDS: Metoprolol Succinate 50 MG Tab.ER PO SCH (08:10)
[2023-01-19] MEDS: Beta-Carotene (Vitamin A) w/Vitamin C & E plus Minerals Tab PO SCH (08:11)
[2023-01-19] MEDS: Clopidogrel 75 MG Tab PO SCH (08:11)
[2023-01-19] MEDS: Empagliflozin 25 MG Tab PO SCH (08:11)
[2023-01-19] MEDS: Calcium Citrate/Vitamin D3 315 MG-250 Unit Tab PO SCH (08:11)
[2023-01-19] MEDS ORDERED: Clopidogrel 75 MG Tab PO SCH (09:00)
== END 2023-01-19 09:46 | disposition swing bed (61) | DRG 65 ==
LOC: VM.ED 13:30 → VM.MS 17:42
PROVIDERS: ADMIT Internal Medicine; ATTEND Internal Medicine
DX: I63.011 Cerebral infarction due to thrombosis of right vertebral artery (principal); I13.0 Hypertensive heart and chronic kidney disease with heart failure and stage 1 through stage 4 chronic kidney disease, or unspecified chronic kidney disease; I50.22 Chronic systolic (congestive) heart failure; I47.20 Ventricular tachycardia, unspecified; E11.9 Type 2 diabetes mellitus without complications; I65.23 Occlusion and stenosis of bilateral carotid arteries; R33.9 Retention of urine, unspecified; E11.22 Type 2 diabetes mellitus with diabetic chronic kidney disease; K21.9 Gastro-esophageal reflux disease without esophagitis; I25.10 Atherosclerotic heart disease of native coronary artery without angina pectoris; G31.84 Mild cognitive impairment of uncertain or unknown etiology; D69.6 Thrombocytopenia, unspecified; D63.1 Anemia in chronic kidney disease; I25.5 Ischemic cardiomyopathy; I10 Essential (primary) hypertension; E11.43 Type 2 diabetes mellitus with diabetic autonomic (poly)neuropathy; N18.31 Chronic kidney disease, stage 3a; E11.40 Type 2 diabetes mellitus with diabetic neuropathy, unspecified; G47.33 Obstructive sleep apnea (adult) (pediatric); Z87.891 Personal history of nicotine dependence; Z98.41 Cataract extraction status, right eye; Z98.890 Other specified postprocedural states; Z86.010 Personal history of colon polyps; I25.2 Old myocardial infarction; E78.00 Pure hypercholesterolemia, unspecified; E66.9 Obesity, unspecified; Z95.1 Presence of aortocoronary bypass graft; Z68.27 Body mass index [BMI] 27.0-27.9, adult; Z79.82 Long term (current) use of aspirin; Z79.899 Other long term (current) drug therapy
CPT/HCPCS: 36415; 70496; 70551; 80048; 80053; 80307; 81001; 82947; 83735; 84100; 84484; 85025; 85610; 85730; 86140; 92610-GN; 93005; 93010; 96360; 97112-GP; 97116-GP; 97161-GP; 97166-GO; 97530-GO; 97535-GO; 99285; 99285-25; A9270-GY; J1650; J1815-GY; J7030; Q9967

== ENCOUNTER 2023-01-18 09:56 | Inpatient (IN) | payer MEDICARE ==
[2023-01-19] MEDS ORDERED: Acetaminophen 500 MG Tab PO PRN (09:04)
[2023-01-19] MEDS ORDERED: Glucagon,Human Recombinant 1 MG Vial IM PRN (09:04)
[2023-01-19] MEDS ORDERED: Nitroglycerin 0.4 MG Tab.SL SL PRN (09:04)
[2023-01-19] MEDS: Magnesium Oxide 400 MG Tab PO SCH ×3 (12:31→20:15)
[2023-01-19] MEDS: Calcium Citrate/Vitamin D3 315 MG-250 Unit Tab PO SCH (18:25)
[2023-01-19] MEDS: atorvaSTATin 40 MG Tab PO SCH (20:15)
[2023-01-19] MEDS: Enoxaparin 40 MG/0.4 ML Syringe SUBCUT SCH (20:15)
[2023-01-20] MEDS: Calcium Citrate/Vitamin D3 315 MG-250 Unit Tab PO SCH ×2 (08:31→17:35)
[2023-01-20] MEDS: Metoprolol Succinate 50 MG Tab.ER PO SCH (09:04)
[2023-01-20] MEDS: Aspirin 81 MG Tab.Chew PO SCH (09:04)
[2023-01-20] MEDS: Clopidogrel 75 MG Tab PO SCH (09:04)
[2023-01-20] MEDS: Empagliflozin 25 MG Tab PO SCH (09:05)
[2023-01-20] MEDS: Beta-Carotene (Vitamin A) w/Vitamin C & E plus Minerals Tab PO SCH (09:05)
[2023-01-20] MEDS: Isosorbide Mononitrate 30 MG Tab.ER PO SCH (09:05)
[2023-01-20] MEDS: Lisinopril 5 MG Tab PO SCH (09:07)
[2023-01-20] MEDS: Cholecalciferol (Vitamin D3) 25 MCG Tab PO SCH (09:07)
[2023-01-20] MEDS: Magnesium Oxide 400 MG Tab PO SCH ×4 (09:07→20:01)
[2023-01-20] MEDS: Enoxaparin 40 MG/0.4 ML Syringe SUBCUT SCH (20:00)
[2023-01-20] MEDS: atorvaSTATin 40 MG Tab PO SCH (20:00)
[2023-01-21] MEDS: Calcium Citrate/Vitamin D3 315 MG-250 Unit Tab PO SCH ×2 (08:09→17:04)
[2023-01-21] MEDS: Beta-Carotene (Vitamin A) w/Vitamin C & E plus Minerals Tab PO SCH (08:09)
[2023-01-21] MEDS: Clopidogrel 75 MG Tab PO SCH (08:09)
[2023-01-21] MEDS: Aspirin 81 MG Tab.Chew PO SCH (08:09)
[2023-01-21] MEDS: Magnesium Oxide 400 MG Tab PO SCH ×4 (08:09→21:23)
[2023-01-21] MEDS: Empagliflozin 25 MG Tab PO SCH (08:09)
[2023-01-21] MEDS: Cholecalciferol (Vitamin D3) 25 MCG Tab PO SCH (08:09)
[2023-01-21] MEDS: Metoprolol Succinate 50 MG Tab.ER PO SCH (08:10)
[2023-01-21] MEDS: Lisinopril 5 MG Tab PO SCH (08:10)
[2023-01-21] MEDS: Isosorbide Mononitrate 30 MG Tab.ER PO SCH (08:10)
[2023-01-21] MEDS ORDERED: Ticagrelor 90 MG Tab PO ONE (10:30)
[2023-01-21] MEDS: atorvaSTATin 40 MG Tab PO SCH (21:23)
[2023-01-21] MEDS: Ticagrelor 90 MG Tab PO SCH (21:23)
[2023-01-21] MEDS: Enoxaparin 40 MG/0.4 ML Syringe SUBCUT SCH (21:24)
[2023-01-22] MEDS: Aspirin 81 MG Tab.Chew PO SCH (08:23)
[2023-01-22] MEDS: Calcium Citrate/Vitamin D3 315 MG-250 Unit Tab PO SCH ×2 (08:23→17:48)
[2023-01-22] MEDS: Beta-Carotene (Vitamin A) w/Vitamin C & E plus Minerals Tab PO SCH (08:24)
[2023-01-22] MEDS: Cholecalciferol (Vitamin D3) 25 MCG Tab PO SCH (08:24)
[2023-01-22] MEDS: Empagliflozin 25 MG Tab PO SCH (08:25)
[2023-01-22] MEDS: Magnesium Oxide 400 MG Tab PO SCH ×4 (08:25→20:56)
[2023-01-22] MEDS: Ticagrelor 90 MG Tab PO SCH ×2 (08:26→20:56)
[2023-01-22] MEDS: Lisinopril 5 MG Tab PO SCH (08:27)
[2023-01-22] MEDS: Isosorbide Mononitrate 30 MG Tab.ER PO SCH (08:27)
[2023-01-22] MEDS: Metoprolol Succinate 50 MG Tab.ER PO SCH (08:28)
[2023-01-22] MEDS: Enoxaparin 40 MG/0.4 ML Syringe SUBCUT SCH (20:56)
[2023-01-22] MEDS: atorvaSTATin 40 MG Tab PO SCH (20:56)
[2023-01-23] MEDS: Beta-Carotene (Vitamin A) w/Vitamin C & E plus Minerals Tab PO SCH (09:34)
[2023-01-23] MEDS: Cholecalciferol (Vitamin D3) 25 MCG Tab PO SCH (09:34)
[2023-01-23] MEDS: Calcium Citrate/Vitamin D3 315 MG-250 Unit Tab PO SCH ×2 (09:35→17:29)
[2023-01-23] MEDS: Aspirin 81 MG Tab.Chew PO SCH (09:35)
[2023-01-23] MEDS: Metoprolol Succinate 50 MG Tab.ER PO SCH (09:36)
[2023-01-23] MEDS: Empagliflozin 25 MG Tab PO SCH (09:37)
[2023-01-23] MEDS: Isosorbide Mononitrate 30 MG Tab.ER PO SCH (09:38)
[2023-01-23] MEDS: Ticagrelor 90 MG Tab PO SCH ×2 (09:38→20:12)
[2023-01-23] MEDS: Lisinopril 5 MG Tab PO SCH (09:38)
[2023-01-23] MEDS: Magnesium Oxide 400 MG Tab PO SCH ×4 (09:38→20:12)
[2023-01-23] MEDS: atorvaSTATin 40 MG Tab PO SCH (20:11)
[2023-01-23] MEDS: Enoxaparin 40 MG/0.4 ML Syringe SUBCUT SCH (20:12)
[2023-01-24] MEDS: Isosorbide Mononitrate 30 MG Tab.ER PO SCH (09:15)
[2023-01-24] MEDS: Empagliflozin 25 MG Tab PO SCH (09:15)
[2023-01-24] MEDS: Ticagrelor 90 MG Tab PO SCH ×2 (09:15→20:24)
[2023-01-24] MEDS: Calcium Citrate/Vitamin D3 315 MG-250 Unit Tab PO SCH ×2 (09:15→17:11)
[2023-01-24] MEDS: Beta-Carotene (Vitamin A) w/Vitamin C & E plus Minerals Tab PO SCH (09:16)
[2023-01-24] MEDS: Lisinopril 5 MG Tab PO SCH (09:16)
[2023-01-24] MEDS: Metoprolol Succinate 50 MG Tab.ER PO SCH (09:16)
[2023-01-24] MEDS: Magnesium Oxide 400 MG Tab PO SCH ×4 (09:16→20:24)
[2023-01-24] MEDS: Aspirin 81 MG Tab.Chew PO SCH (09:16)
[2023-01-24] MEDS: Cholecalciferol (Vitamin D3) 25 MCG Tab PO SCH (09:16)
[2023-01-24] MEDS: atorvaSTATin 40 MG Tab PO SCH (20:24)
[2023-01-24] MEDS: Enoxaparin 40 MG/0.4 ML Syringe SUBCUT SCH (20:25)
[2023-01-25] MEDS: Cholecalciferol (Vitamin D3) 25 MCG Tab PO SCH (08:45)
[2023-01-25] MEDS: Magnesium Oxide 400 MG Tab PO SCH ×4 (08:45→21:14)
[2023-01-25] MEDS: Calcium Citrate/Vitamin D3 315 MG-250 Unit Tab PO SCH ×2 (08:45→17:08)
[2023-01-25] MEDS: Aspirin 81 MG Tab.Chew PO SCH (08:45)
[2023-01-25] MEDS: Beta-Carotene (Vitamin A) w/Vitamin C & E plus Minerals Tab PO SCH (08:45)
[2023-01-25] MEDS: Metoprolol Succinate 50 MG Tab.ER PO SCH (08:46)
[2023-01-25] MEDS: Isosorbide Mononitrate 30 MG Tab.ER PO SCH (08:46)
[2023-01-25] MEDS: Lisinopril 5 MG Tab PO SCH (08:46)
[2023-01-25] MEDS: Ticagrelor 90 MG Tab PO SCH ×2 (08:46→21:14)
[2023-01-25] MEDS: Empagliflozin 25 MG Tab PO SCH (08:46)
[2023-01-25] MEDS: atorvaSTATin 40 MG Tab PO SCH (21:14)
[2023-01-25] MEDS: Enoxaparin 40 MG/0.4 ML Syringe SUBCUT SCH (21:14)
[2023-01-26 07:28] LABS: ANION GAP 12.2 mmol/L (5-15)
[2023-01-26] MEDS: Aspirin 81 MG Tab.Chew PO SCH (08:24)
[2023-01-26] MEDS: Calcium Citrate/Vitamin D3 315 MG-250 Unit Tab PO SCH ×2 (08:24→17:32)
[2023-01-26] MEDS: Ticagrelor 90 MG Tab PO SCH ×2 (08:24→20:17)
[2023-01-26] MEDS: Isosorbide Mononitrate 30 MG Tab.ER PO SCH (08:25)
[2023-01-26] MEDS: Empagliflozin 25 MG Tab PO SCH (08:25)
[2023-01-26] MEDS: Lisinopril 5 MG Tab PO SCH (08:26)
[2023-01-26] MEDS: Magnesium Oxide 400 MG Tab PO SCH ×4 (08:26→20:17)
[2023-01-26] MEDS: Metoprolol Succinate 50 MG Tab.ER PO SCH (08:27)
[2023-01-26] MEDS: Cholecalciferol (Vitamin D3) 25 MCG Tab PO SCH (08:27)
[2023-01-26] MEDS: Beta-Carotene (Vitamin A) w/Vitamin C & E plus Minerals Tab PO SCH (08:27)
[2023-01-26] MEDS: atorvaSTATin 40 MG Tab PO SCH (20:16)
[2023-01-26] MEDS: Enoxaparin 40 MG/0.4 ML Syringe SUBCUT SCH (20:17)
[2023-01-27] MEDS: Isosorbide Mononitrate 30 MG Tab.ER PO SCH (08:08)
[2023-01-27] MEDS: Empagliflozin 25 MG Tab PO SCH (08:08)
[2023-01-27] MEDS: Magnesium Oxide 400 MG Tab PO SCH (08:09)
[2023-01-27] MEDS: Metoprolol Succinate 50 MG Tab.ER PO SCH (08:10)
[2023-01-27] MEDS: Beta-Carotene (Vitamin A) w/Vitamin C & E plus Minerals Tab PO SCH (08:11)
[2023-01-27] MEDS: Calcium Citrate/Vitamin D3 315 MG-250 Unit Tab PO SCH (08:11)
[2023-01-27] MEDS: Ticagrelor 90 MG Tab PO SCH (08:11)
[2023-01-27] MEDS: Cholecalciferol (Vitamin D3) 25 MCG Tab PO SCH (08:11)
[2023-01-27] MEDS: Lisinopril 5 MG Tab PO SCH (08:12)
[2023-01-27] MEDS: Aspirin 81 MG Tab.Chew PO SCH (08:12)
[2023-01-27 08:13] VITALS: PULSE 65
[2023-01-27 09:45] VITALS: BP 145/75
[2023-01-28] MEDS ORDERED: Clopidogrel 75 MG Tab PO SCH (09:00)
== END 2023-01-27 10:35 | disposition home health service (06) | DRG 57 ==
LOC: VM.MS 01-19 09:07
PROVIDERS: ADMIT Family Medicine; ATTEND Family Medicine
DX: G31.84 Mild cognitive impairment of uncertain or unknown etiology (principal); I42.9 Cardiomyopathy, unspecified; I50.22 Chronic systolic (congestive) heart failure; I13.0 Hypertensive heart and chronic kidney disease with heart failure and stage 1 through stage 4 chronic kidney disease, or unspecified chronic kidney disease; I25.10 Atherosclerotic heart disease of native coronary artery without angina pectoris; N18.31 Chronic kidney disease, stage 3a; R33.9 Retention of urine, unspecified; E11.22 Type 2 diabetes mellitus with diabetic chronic kidney disease; H54.7 Unspecified visual loss; Z79.899 Other long term (current) drug therapy
CPT/HCPCS: 36415; 70450; 80048; 82947; 85027; 93005; 95851-GO; 97110-GP; 97112-GP; 97116-GP; 97530-GO; 97535-GO; A9270-GY; J1650